=== PATIENT | female | born 1995 | race Caucasian/White ===

== ENCOUNTER 2020-05-07 01:01 | Emergency (ER) | payer SELFPAY ==
[2020-05-07] MEDS ORDERED: Sodium Chloride 0.9% 2.5 ML Syringe FLUSH PRN (01:38)
[2020-05-07] MEDS ORDERED: Sodium Chloride 0.9% 10 ML Syringe FLUSH PRN (01:38)
--- NOTE | 2020-05-07 01:42 | EDM.PDOC ---
ED HPI GENERAL MEDICAL PROBLEM - General Chief Complaint: Skin Complaint Stated Complaint: ABCESS ON BOTTOM Time Seen by Provider: 05/07/20 01:24 - History of Present Illness INITIAL COMMENTS - FREE TEXT/NARRATIVE: History of present illness: 25-year-old female presenting with left buttock abscess and rectal pain. Apparently started 2 days ago with pain in the rectum. Then she started to have pain migrating to the left buttock. She was concerned because she has previously had an abscess in that region that required I&D. She has not had any fevers or chills. No abdominal pain. No difficulty passing stool. Review of systems: As per history of present illness and below otherwise all systems reviewed and negative. Past medical history: As per history of present illness and as reviewed below otherwise noncontribut ory. Surgical history: As per history of present illness and as reviewed below otherwise noncontributory. Social history: No reported history of drug or alcohol abuse. Family history: As per history of present illness and as reviewed below otherwise noncontributory. Physical exam: GEN: no acute distress, well appearing HEENT: Atraumatic, normocephalic, mucous membranes moist, Neck: supple, nontender, trachea midline. Lungs: No respiratory distress. Heart: RRR Abdomen: Soft, nondistended, nontender. Rectal exam: External hemorrhoid, tender to palpation on rectal examination, no fullness palpated however there is induration and tenderness just lateral to the anus. No fluctuance at the site though is indurated and mildly swollen. Extremities: Atraumatic. Neurovascularly intact. Neuro: Awake, alert, oriented. Neuro Exam nonfocal. Skin: warm, dry, duration with mild erythema adjacent to the anus in the left buttock area. No perineal cellulitis. Diagnostics: [] Therapeutics: [] MDM: Impression: [] Plan: [] Definitive disposition and diagnosis as appropriate pending reevaluation and review of above. 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 History: Reports: None Neurological History: Reports: None Psychiatric History: Reports: None Endocrine/Metabolic History: Reports: None Hematologic History: Reports: None Immunologic History: Reports: None Oncologic (Cancer) History: Reports: None Dermatologic History: Reports: None - Infectious Disease History Infectious Disease History: Reports: None Social & Family History - Tobacco Use Smoking Status *Q: Current Every Day Smoker Years of Tobacco use: 8 Packs/Tins Daily: 0.5 - Recreational Drug Use Recreational Drug Use: No ED ROS GENERAL - Review of Systems Review Of Systems: See Below (See HPI) ED EXAM, SKIN/RASH Exam: See Below (See HPI) ED SKIN PROCEDURES - I&D Skin Prep: Providone-Iodine (Betadine), Saline Local Anesthesia: Lidocaine: 1% with EPI Local Anesthetic Volume: 2cc Area Incised With: 11 Blade Drainage: Bloody, Other (Patient unable to tolerate full I&D and declined additional pain medication) Course - Vital Signs Text/Narrative:: Concern for possible perirectal/perianal abscess or buttock abscess. CT scan ordered. Patient declined pain medications. CT scan shows perianal abscess, no perirectal abscess. Attempted I&D but patient unable to tolerate and therefore she request to be discharged with antibiotics and will also refer for surgery follow-up. Augmentin added into patient's pharmacy. Last Recorded V/S: Last Vital Signs Temp 96.5 F L 05/07/20 01:17 Pulse 94 05/07/20 04:59 Resp 14 05/07/20 04:59 BP 108/48 L 05/07/20 04:59 Pulse Ox 96 05/07/20 04:59 - Orders/Labs/Meds Orders: Active Orders 24 hr Category Date Time Status Sodium Chloride 0.9% [Saline Flush] Med 05/07/20 01:38 Active 10 ml FLUSH ASDIRECTED PRN Sodium Chloride 0.9% [Saline Flush] Med 05/07/20 01:38 Active 2.5 ml FLUSH ASDIRECTED PRN Saline Lock Insert [OM.PC] Stat Oth 05/07/20 01:38 Ordered Medication Orders Sodium Chloride (Saline Flush) 10 ml FLUSH ASDIRECTED PRN PRN Reason: Keep Vein Open Sodium Chloride (Saline Flush) 2.5 ml FLUSH ASDIRECTED PRN PRN Reason: Keep Vein Open Labs: Laboratory Tests 05/07/20 05/07/20 05/07/20 Range/Units 01:45 01:45 01:45 WBC 13.48 H (4.0-11.0) K/uL RBC 4.83 (4.30-5.90) M/uL Hgb 15.0 (12.0-16.0) g/dL Hct 44.2 (36.0-46.0) % MCV 91.5 (80.0-98.0) fL MCH 31.1 (27.0-32.0) pg MCHC 33.9 (31.0-37.0) g/dL RDW Std Deviation 42.9 (28.0-62.0) fl RDW Coeff of Eder 13 (11.0-15.0) % Plt Count 173 (150-400) K/uL MPV 11.10 (7.40-12.00) fL Neut % (Auto) 64.2 (48.0-80.0) % Lymph % (Auto) 23.7 (16.0-40.0) % [place] % (Auto) 10.0 (0.0-15.0) % Eos % (Auto) 1.9 (0.0-7.0) % Baso % (Auto) 0.2 (0.0-1.5) % Neut # (Auto) 8.7 H (1.4-5.7) K/uL Lymph # (Auto) 3.2 H (0.6-2.4) K/uL [place] # (Auto) 1.4 H (0.0-0.8) K/uL Eos # (Auto) 0.3 (0.0-0.7) K/uL Baso # (Auto) 0.0 (0.0-0.1) K/uL Nucleated RBC % 0.0 /100WBC Nucleated RBCs # 0 K/uL Sodium 142 (136-145) mmol/L Potassium 3.7 (3.5-5.1) mmol/L Chloride 103 (98-107) mmol/L Carbon Dioxide 29.2 (21.0-32.0) mmol/L BUN 19 H (7.0-18.0) mg/dL Creatinine 0.8 (0.6-1.0) mg/dL Est Cr Clr Drug Dosing 87.38 mL/min Estimated GFR (MDRD) > 60.0 ml/min Glucose 102 (74-106) mg/dL Calcium 9.1 (8.5-10.1) mg/dL HCG, Qual NEGATIVE (NEG) Meds: Medications Generic Name Dose Route Start Last Admin Trade Name Freq PRN Reason Stop Dose Admin Sodium Chloride 10 ml 05/07/20 01:38 Saline Flush FLUSH ASDIRECTED PRN Keep Vein Open Sodium Chloride 2.5 ml 05/07/20 01:38 Saline Flush FLUSH ASDIRECTED PRN Keep Vein Open Discontinued Medications Generic Name Dose Route Start Last Admin Trade Name Freq PRN Reason Stop Dose Admin Amoxicillin/Clavulanate Potassium 1 tab 05/07/20 02:45 05/07/20 04:11 Augmentin 875 Mg/125 Mg PO 05/07/20 02:46 1 tab ONETIME ONE Administration Iopamidol 100 ml 05/07/20 02:38 05/07/20 02:52 Isovue-370 (76%) IVPUSH 05/07/20 02:39 100 ml ONETIME ONE Administration Ketorolac Tromethamine 30 mg 05/07/20 04:17 05/07/20 04:23 Toradol IVPUSH 05/07/20 04:18 30 mg ONETIME ONE Administration Lidocaine/Epinephrine 10 ml 05/07/20 03:51 05/07/20 04:25 Xylocaine 1% With Epinephrine 1:100,000 INJECT 05/07/20 03:52 Not Given ONETIME ONE Lidocaine/Epinephrine Confirm 05/07/20 04:04 05/07/20 04:11 Xylocaine 1% With Epinephrine 1:100,000 Administered 05/07/20 04:05 20 ml Dose Administration 20 ml .ROUTE .STK-MED ONE - Re-Assessments/Exams Free Text/Narrative Re-Assessment/Exam: 05/07/20 04:[address] scan discussed with the patient, including perianal abscess and need for abscess I&D. The patient agrees with this plan. At first she had declined pain medication, however she does now agree to Toradol since she still needs to drive home. 05/07/20 05:29 Attempted I&D, despite pain medications and adequate local anesthesia, the patient was unable to tolerate I&D and declined any further attempts. I did offer her additional pain medications though she drove here, but she reports she is unable to get a ride home and she does not want to have any further intervention. She prefers to attempt the antibiotics and will continue to closely monitor her symptoms for the next 48 hours and return to the ER if symptoms are not significantly improved within 48 hours. Discussed plan to refer the patient to a surgeon as well as she has had 2 perianal abscesses in a short timeframe. She agrees with this plan. Departure - Departure Time of Disposition: 05:30 Disposition: Home, Self-Care 01 Clinical Impression: Perianal abscess - Discharge Information Prescriptions: Amoxicillin/Potassium Clav [Augmentin 875-125 Tablet] 1 each PO BID #20 tablet Instructions: Skin Abscess, [id number], Anorectal Abscess Referrals: PCP,None [Primary Care Provider] - Forms: ED Department Discharge Additional Instructions: The following information is given to patients seen in the emergency department who are being discharged to home. This information is to outline your options for follow-up care. We provide all patients seen in our emergency department with a follow-up referral. The need for follow-up, as well as the timing and circumstances, are variable depending upon the specifics of your emergency department visit. If you don't have a primary care physician on staff, we will provide you with a referral. We always advise you to contact your personal physician following an emergency department visit to inform them of the circumstance of the visit and for follow-up with them and/or the need for any referrals to a consulting specialist. The emergency department will also refer you to a specialist when appropriate. This referral assures that you have the opportunity for follow-up care with a specialist. All of these measure are taken in an effort to provide you with optimal care, which includes your follow-up. Under all circumstances we always encourage you to contact your private physician who remains a resource for coordinating your care. When calling for follow-up care, please make the office aware that this follow-up is from your recent emergency room visit. If for any reason you are refused follow-up, please contact the [facility] Emergency Department at and asked to speak to the emergency department charge nurse. [facility] - [facility] Professional Building [address] [place] [address], [address] [place] [address] Please follow-up with the surgery clinic as soon as possible for further evaluation of your abscess and possible definitive treatment. Sepsis Event Note (ED) - Evaluation Sepsis Screening Result: No Definite Risk - Focused Exam Vital Signs: Vital Signs Temp Pulse Resp BP Pulse Ox 05/07/20 04:59 94 14 108/48 L 96 05/07/20 02:36 94 16 106/61 96 05/07/20 01:17 96.5 F L 94 16 132/85 99 - My Orders Last 24 Hours: My Active Orders 05/07/20 01:38 Sodium Chloride 0.9% [Saline Flush] 10 ml FLUSH ASDIRECTED PRN Sodium Chloride 0.9% [Saline Flush] 2.5 ml FLUSH ASDIRECTED PRN Saline Lock Insert [OM.PC] Stat - Assessment/Plan Last 24 Hours: My Active Orders 05/07/20 01:38 Sodium Chloride 0.9% [Saline Flush] 10 ml FLUSH ASDIRECTED PRN Sodium Chloride 0.9% [Saline Flush] 2.5 ml FLUSH ASDIRECTED PRN Saline Lock Insert [OM.PC] Stat
[2020-05-07 02:17] LABS: BLOOD UREA NITROGEN,BUN 19 mg/dL (7.0-18.0); CARBON DIOXIDE,CO2 29.2 mmol/L (21.0-32.0); CHLORIDE,CL 103 mmol/L (98-107); GLUCOSE RANDOM 102 mg/dL (74-106); POTASSIUM,K 3.7 mmol/L (3.5-5.1); SODIUM,NA 142 mmol/L (136-145)
[2020-05-07] MEDS ORDERED: Iopamidol 755 Mg/ML 100 ML Bottle IVPUSH ONE (02:38)
[2020-05-07] MEDS ORDERED: Amoxicillin/Clavulanate K 875-125 MG Tab PO ONE (02:45)
--- NOTE | 2020-05-07 03:29 | CT ---
INDICATION: Perirectal abscess TECHNIQUE: Axial images were obtained from the diaphragm to the pubic symphysis. Reformats were obtained in the coronal and sagittal plane. IV Contrast: 100 cc Isovue 370 Oral Contrast: None COMPARISON: None. FINDINGS: Lower chest: Unremarkable. Liver: Unremarkable. Normal in size and attenuation. No masses. Gallbladder and bile ducts: Unremarkable. No stones or inflammation. No biliary dilatation. Spleen: Unremarkable. Normal in size without mass. Pancreas: Unremarkable. No mass or inflammation. Adrenal glands: Unremarkable. No nodules. Kidneys: Unremarkable. No masses, stones, or hydronephrosis. Vasculature: Unremarkable. GI tract: The stomach is unremarkable. No dilated loops of large or small intestine. Appendix unremarkable. Pelvis: Anteverted uterus. Bladder unremarkable. No adnexal mass. Within the left perianal tissues just distal to the anal sphincter there is a rim enhancing fluid collection with adjacent fat stranding measuring 12 x 9 x 8 millimeters (201, 137; 203, 64). Bones: Unremarkable for age. IMPRESSION: Left lateral perianal abscess distal to the anal sphincter measuring 12 x 9 x 8 millimeters. Please note that all CT scans at this facility use dose modulation, iterative reconstruction, and/or weight-based dosing when appropriate to reduce radiation dose to as low as reasonably achievable. Dictated by Fabio Payton MD @ May 07 2020 3:23AM Signed by Dr. Fabio Payton @ May 07 2020 3:27AM
[2020-05-07] MEDS ORDERED: Lidocaine 1% with EPINEPHrine 1:100,000 10 ML MDV INJECT ONE (03:51)
[2020-05-07] MEDS ORDERED: Lidocaine 1% with EPINEPHrine 1:100,000 20 ML MDV ONE (04:04)
[2020-05-07] MEDS ORDERED: Ketorolac 30 MG/ML SDV IVPUSH ONE (04:17)
== END 2020-05-07 05:45 | disposition home or self-care (01) ==
LOC: MW.ED 01:01
DX: K61.0 Anal abscess (principal); F17.210 Nicotine dependence, cigarettes, uncomplicated
CPT/HCPCS: 36415; 74177; 80048; 84703; 85025; 99283; A9270; J1885; Q9967

== ENCOUNTER 2021-06-20 19:03 | Emergency (ER) | payer SELFPAY ==
[2021-06-20] MEDS ORDERED: Sodium Chloride 0.9% 1,000 ML IV ONE (19:11)
--- NOTE | 2021-06-20 20:26 | EDM.PDOC ---
ED HPI GENERAL MEDICAL PROBLEM - General Chief Complaint: Headache Stated Complaint: DIZZINESS, HEAD PRESSURE, BLURRY VISION Time Seen by Provider: 06/20/21 19:08 Source of Information: Reports: Patient History Limitations: Reports: No Limitations - History of Present Illness INITIAL COMMENTS - FREE TEXT/NARRATIVE: HISTORY AND PHYSICAL: History of present illness: Patient is a 26-year-old female who presents to the emergency room with complaints of right ear pain, sinus pressure, and intermittent blurred vision of the right eye. Patient states she has had the symptoms for approximately 2 months. Symptoms initially started with headache on the right side which caused some intermittent blurred vision and light sensitivity. She allowed the symptoms to go on for approximately 1 month and then was seen by her primary care provider, Gabby mulligan. She was given a prescription for Doxycycline and steroid. She states the headaches have resolved. She occasionally has right ear pain into the mastoid region. Currently pain-free. Does not wear contact lenses or glasses. Patient denies any fever, chills, headache, change in vision, syncope or near syncope. Denies any chest pain, back pain, shortness of breath or cough. Denies any abdominal pain, nausea, vomiting, diarrhea, constipation or dysuria. Has not noted any blood in urine or stool. Patient has been eating and drinking appropriately. Review of systems: As per history of present illness and below otherwise all systems reviewed and negative. Past medical history: As per history of present illness and as reviewed below otherwise noncontributory. Surgical history: As per history of present illness and as reviewed below otherwise noncontributory. Social history: See social history for further information Family history: As per history of present illness and as reviewed below otherwise noncontributory. Physical exam: General: Well developed and well nourished 26-year-old female. Alert and orientated x 3. Nontoxic in appearance and in no acute distress. Vital signs are stable and have been reviewed by me. Nursing notes were reviewed. HEENT: Atraumatic, normocephalic, pupils equal and reactive bilaterally, negative for conjunctival pallor or scleral icterus, no pain with ocular movement, mucous membranes moist, TMs normal bilaterally, mild right mastoid tenderness to palpation, throat clear, neck supple, nontender, trachea midline. No drooling or trismus noted. No meningeal signs. No hot potato voice noted. Lungs: Clear to auscultation bilaterally. No wheezes, rales, or rhonchi. Chest nontender. Normal work of breathing, no accessory muscles used. Heart: S1S2, regular rate and rhythm without overt murmur, gallops, or rubs. No JVD. No peripheral edema Abdomen: Soft, nondistended, nontender. Normoactive bowel sounds. Negative for masses or costovertebral tenderness. Skin: Intact, warm, dry. No lesions or rashes noted. Hematologic: No petechiae or purpra. Mucosa appropriate color and normal nail bed color and refill. Extremities: Atraumatic, moves all extremities per self without difficulty or deficits, negative for cords or calf pain. Neurovascular unremarkable. Neuro: Awake, alert, oriented. Cranial nerves II through XII unremarkable. Cerebellum unremarkable. Motor and sensory unremarkable throughout. Exam nonfocal. Psychiatric: Mood and affect are appropriate. Normal thought process. Answering questions appropriately. Notes: *This patient was seen and evaluated during the 2019 SARS-CoV-2 novel coronavirus pandemic period. Community viral transmission is ongoing at time of this encounter and the emergency department is operating under pandemic response procedures. Patient is a 26-year-old female who presents to the emergency room with complaints of intermittent right ear pain, change in vision of the right eye and sinus pressure. She states symptoms have been going on for approximately 2 months. Previously she did have complaints of headache and light sensitivity, this has resolved since taking a course of antibiotic and steroid. Physical exam is unremarkable with the exception of mild tenderness to the mastoid region. Due to symptoms been going on for approximately 2 months without any labs or imaging I will perform those today. Patient states she is currently not having any pain, declines IV access and medication/fluid. Head CT shows no acute intracranial findings. Mucosal thickening in the left maxillary and left sphenoid sinuses. No air-fluid levels. The mastoid air cells are clear. Negative CT of the temporal bones. Lab work is unremarkable. I have talked with the patient about today's findings, in addition to providing specific details for plan of care. Reassessment at the time of disposition demonstrates that the patient is in no acute distress. The patient is stable for discharge, counseling was provided and we discussed in great detail signs and symptoms that would prompt them to return to the Emergency Department. Medication, follow up and supportive care measures were reviewed and discussed. Voices understanding and is agreeable to plan of care. Denies any further questions or concerns at this time. Diagnostics: CBC, CMP, CT head and ear bones Therapeutics: None Prescription: Augmentin Impression: Sinusitis Plan: 1. You were evaluated today on an emergent basis. Your lab work is within nor mal limits. The CT of your head and middle ear are unremarkable with the exception of left sided sinusitis. I would like you to do over the counter decongestant for your symptoms. It may be worse for you to follow-up with an fiscal specialist for further evaluation if this continues. 2. You can alternate Tylenol and ibuprofen as needed for pain and fever management. 3. We encourage you to follow up with your primary care provider and/or recommended specialist in the next few days for re-evaluation and further care/management. 4. If your symptoms should worsen, new symptoms develop or any of the signs and symptoms we discussed should arise please return to the emergency room or call 911 (if needed). Definitive disposition and diagnosis as appropriate pending reevaluation and review of above. - Related Data Allergies Allergy/AdvReac Type Severity Reaction Status Date / Time No Known Allergies Allergy Verified 06/20/21 19:20 Home Meds: Home Meds . 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: Musculoskeletal History: Reports: None Neurological History: Reports: None Psychiatric History: Reports: None Endocrine/Metabolic History: Reports: None Hematologic History: Reports: None Immunologic History: Reports: None Oncologic (Cancer) History: Reports: None Dermatologic History: Reports: None - Infectious Disease History Infectious Disease History: Reports: None Social & Family History - Tobacco Use Tobacco Use Status *Q: Never Tobacco User - Recreational Drug Use Recreational Drug Use: No ED ROS GENERAL - Review of Systems Review Of Systems: Comprehensive ROS is negative, except as noted in HPI. ED EXAM, GENERAL - Physical Exam Exam: See Below (See dictation) Course - Vital Signs Last Recorded V/S: Last Vital Signs Temp 97 F 06/20/21 19:17 Pulse 120 H 06/20/21 19:17 Resp 20 06/20/21 19:17 BP 146/81 H 06/20/21 19:17 Pulse Ox 98 06/20/21 19:17 - Orders/Labs/Meds Orders: Active Orders 24 hr Category Date Time Status Visual Acuity [Vision Test] [RC] ASDIRECTED Care 06/20/21 19:39 Active Labs: Laboratory Tests 06/20/21 06/20/21 06/20/21 Range/Units 19:46 19:46 20:05 WBC 9.99 (4.0-11.0) K/uL RBC 4.36 (4.30-5.90) M/uL Hgb 13.8 (12.0-16.0) g/dL Hct 38.9 (36.0-46.0) % MCV 89.2 (80.0-98.0) fL MCH 31.7 (27.0-32.0) pg MCHC 35.5 (31.0-37.0) g/dL RDW Std Deviation 42.4 (28.0-62.0) fl RDW Coeff of Eder 13 (11.0-15.0) % Plt Count 155 (150-400) K/uL MPV 10.70 (7.40-12.00) fL Neut % (Auto) 61.2 (48.0-80.0) % Lymph % (Auto) 29.9 (16.0-40.0) % [place] % (Auto) 6.7 (0.0-15.0) % Eos % (Auto) 1.9 (0.0-7.0) % Baso % (Auto) 0.3 (0.0-1.5) % Neut # (Auto) 6.1 H (1.4-5.7) K/uL Lymph # (Auto) 3.0 H (0.6-2.4) K/uL [place] # (Auto) 0.7 (0.0-0.8) K/uL Eos # (Auto) 0.2 (0.0-0.7) K/uL Baso # (Auto) 0.0 (0.0-0.1) K/uL Nucleated RBC % 0.0 /100WBC Nucleated RBCs # 0 K/uL Sodium 139 (136-145) mmol/L Potassium 3.6 (3.5-5.1) mmol/L Chloride 102 (98-107) mmol/L Carbon Dioxide 28.4 (21.0-32.0) mmol/L BUN 12 (7.0-18.0) mg/dL Creatinine 0.7 (0.6-1.0) mg/dL Est Cr Clr Drug Dosing 98.98 mL/min Estimated GFR (MDRD) > 60.0 ml/min Glucose 102 (74-106) mg/dL Calcium 8.3 L (8.5-10.1) mg/dL Total Bilirubin 0.2 (0.2-1.0) mg/dL AST 12 L (15-37) IU/L ALT 25 (14-63) IU/L Alkaline Phosphatase 51 (46-116) U/L Total Protein 6.8 (6.4-8.2) g/dL Albumin 3.7 (3.4-5.0) g/dL Globulin 3.1 (2.6-4.0) g/dL Albumin/Globulin Ratio 1.2 (0.9-1.6) Urine Color YELLOW Urine Appearance CLEAR Urine pH 6.0 (5.0-8.0) Ur Specific [place] 1.015 (1.001-1.035) Urine Protein NEGATIVE (NEGATIVE) mg/dL Urine Glucose (UA) NEGATIVE (NEGATIVE) mg/dL Urine Ketones NEGATIVE (NEGATIVE) mg/dL Urine Occult Blood NEGATIVE (NEGATIVE) Urine Nitrite NEGATIVE (NEGATIVE) Urine Bilirubin NEGATIVE (NEGATIVE) Urine Urobilinogen 0.2 (<2.0) EU/dL Ur Leukocyte Esterase NEGATIVE (NEGATIVE) Urine HCG, Qual (NEGATIVE) 06/20/21 Range/Units 20:05 WBC (4.0-11.0) K/uL RBC (4.30-5.90) M/uL Hgb (12.0-16.0) g/dL Hct (36.0-46.0) % MCV (80.0-98.0) fL MCH (27.0-32.0) pg MCHC (31.0-37.0) g/dL RDW Std Deviation (28.0-62.0) fl RDW Coeff of Eder (11.0-15.0) % Plt Count (150-400) K/uL MPV (7.40-12.00) fL Neut % (Auto) (48.0-80.0) % Lymph % (Auto) (16.0-40.0) % [place] % (Auto) (0.0-15.0) % Eos % (Auto) (0.0-7.0) % Baso % (Auto) (0.0-1.5) % Neut # (Auto) (1.4-5.7) K/uL Lymph # (Auto) (0.6-2.4) K/uL [place] # (Auto) (0.0-0.8) K/uL Eos # (Auto) (0.0-0.7) K/uL Baso # (Auto) (0.0-0.1) K/uL Nucleated RBC % /100WBC Nucleated RBCs # K/uL Sodium (136-145) mmol/L Potassium (3.5-5.1) mmol/L Chloride (98-107) mmol/L Carbon Dioxide (21.0-32.0) mmol/L BUN (7.0-18.0) mg/dL Creatinine (0.6-1.0) mg/dL Est Cr Clr Drug Dosing mL/min Estimated GFR (MDRD) ml/min Glucose (74-106) mg/dL Calcium (8.5-10.1) mg/dL Total Bilirubin (0.2-1.0) mg/dL AST (15-37) IU/L ALT (14-63) IU/L Alkaline Phosphatase (46-116) U/L Total Protein (6.4-8.2) g/dL Albumin (3.4-5.0) g/dL Globulin (2.6-4.0) g/dL Albumin/Globulin Ratio (0.9-1.6) Urine Color Urine Appearance Urine pH (5.0-8.0) Ur Specific [place] (1.001-1.035) Urine Protein (NEGATIVE) mg/dL Urine Glucose (UA) (NEGATIVE) mg/dL Urine Ketones (NEGATIVE) mg/dL Urine Occult Blood (NEGATIVE) Urine Nitrite (NEGATIVE) Urine Bilirubin (NEGATIVE) Urine Urobilinogen (<2.0) EU/dL Ur Leukocyte Esterase (NEGATIVE) Urine HCG, Qual NEGATIVE (NEGATIVE) Meds: Medications Discontinued Medications Generic Name Dose Route Start Last Admin Trade Name Freq PRN Reason Stop Dose Admin Sodium Chloride 1,000 mls @ 999 mls/hr 06/20/21 19:11 06/20/21 20:49 Normal Saline IV 06/20/21 20:11 Not Given STAT ONE Departure - Departure Time of Disposition: 21:42 Disposition: Home, Self-Care 01 Clinical Impression: Sinusitis Qualifiers: Sinusitis location: sphenoidal Chronicity: acute Recurrence: non-recurrent Qualified Code(s): J01.30 - Acute sphenoidal sinusitis, unspecified - Discharge Information Instructions: Sinusitis, Adult, [id number] Referrals: Gabby Soto PA [Primary Care Provider] - Forms: ED Department Discharge Additional Instructions: The following information is given to patients seen in the emergency department who are being discharged to home. This information is to outline your options for follow-up care. We provide all patients seen in our emergency department with a follow-up referral. The need for follow-up, as well as the timing and circumstances, are variable depending upon the specifics of your emergency department visit. If you don't have a primary care physician on staff, we will provide you with a referral. We always advise you to contact your personal physician following an emergency department visit to inform them of the circumstance of the visit and for follow-up with them and/or the need for any referrals to a consulting specialist. The emergency department will also refer you to a specialist when appropriate. This referral assures that you have the opportunity for follow-up care with a specialist. All of these measure are taken in an effort to provide you with optimal care, which includes your follow-up. Under all circumstances we always encourage you to contact your private physician who remains a resource for coordinating your care. When calling for follow-up care, please make the office aware that this follow-up is from your recent emergency room visit. If for any reason you are refused follow-up, please contact the [facility] Emergency Department at and asked to speak to the emergency department charge nurse. [facility] [address] [place] [id number] [id number] Thank you for choosing the [facility] emergency department in [place] for your medical needs today. It was a pleasure caring for you. Today you were seen in the emergency department for sinusitis. 1. You were evaluated today on an emergent basis. Your lab work is within normal limits. The CT of your head and middle ear are unremarkable with the exception of left sided sinusitis. I would like you to do over the counter decongestant for your symptoms. It may be worse for you to follow-up with an fiscal specialist for further evaluation if this continues. 2. You can alternate Tylenol and ibuprofen as needed for pain and fever management. 3. We encourage you to follow up with your primary care provider and/or recommended specialist in the next few days for re-evaluation and further care/management. 4. If your symptoms should worsen, new symptoms develop or any of the signs and symptoms we discussed should arise please return to the emergency room or call 911 (if needed). Sepsis Event Note (ED) - Evaluation Sepsis Screening Result: No Definite Risk - Focused Exam Vital Signs: Vital Signs Temp Pulse Resp BP Pulse Ox 06/20/21 19:17 97 F 120 H 20 146/81 H 98 - My Orders Last 24 Hours: My Active Orders 06/20/21 19:39 Visual Acuity [Vision Test] [RC] ASDIRECTED - Assessment/Plan Last 24 Hours: My Active Orders 06/20/21 19:39 Visual Acuity [Vision Test] [RC] ASDIRECTED
[2021-06-20 20:27] LABS: BLOOD UREA NITROGEN,BUN 12 mg/dL (7.0-18.0); CARBON DIOXIDE,CO2 28.4 mmol/L (21.0-32.0); CHLORIDE,CL 102 mmol/L (98-107); GLUCOSE RANDOM 102 mg/dL (74-106); POTASSIUM,K 3.6 mmol/L (3.5-5.1); SODIUM,NA 139 mmol/L (136-145)
--- NOTE | 2021-06-20 21:37 | CT ---
INDICATION: Headache, dizziness, right ear pain. COMPARISON: None. TECHNIQUE: CT of the head without IV contrast. Coronal and sagittal reconstructions are provided. FINDINGS: No intracranial hemorrhage, mass effect, or evidence of acute infarct. No midline shift. No abnormal extra-axial fluid collections. Normal caliber ventricular system. Orbits and extraocular muscles are symmetric. Mucosal thickening in the left maxillary and left sphenoid sinuses. No air-fluid levels. The paranasal sinuses and mastoid air cells are otherwise clear. No acute fracture. Soft tissues are unremarkable. IMPRESSION: : 1. No acute intracranial findings. 2. Mucosal thickening in the left maxillary and left sphenoid sinuses. No air-fluid levels. The mastoid air cells are clear. Please note that all CT scans at this facility use dose modulation, iterative reconstruction, and/or weight-based dosing when appropriate to reduce radiation dose to as low as reasonably achievable. Dictated by Liana Duran MD @ 06/20/2021 9:34:[address] Liana Duran @ Jun 20 2021 9:34PM
--- NOTE | 2021-06-20 21:39 | CT ---
Indication : Right ear pain. Headache. Dizziness. Evaluate for mastoiditis. Technique : Performed without IV contrast. Comparison : None available. Findings : The middle ear clefts are well aerated, including the oval window and round window/sinus tympani areas. The ossicular chains and tympanic membranes have a normal CT appearance. The mastoids are well developed and clear, including the central tracts and peripheral air cells. The inner ear structures and IACs are unremarkable. The external canals are negative. No abnormalities identified in the adjacent temporomandibular joints. The visualized portions of the brain, orbits and upper soft tissue neck are grossly negative. Impression : Negative CT of the temporal bones. Please note that all CT scans at this facility use dose modulation, iterative reconstruction, and/or weight-based dosing when appropriate to reduce radiation dose to as low as reasonably achievable. Dictated by Héctor May MD @ 06/20/2021 9:37:[address] Héctor May @ Jun 20 2021 9:37PM
== END 2021-06-20 21:53 | disposition home or self-care (01) ==
LOC: MW.ED 19:03
DX: J01.30 Acute sphenoidal sinusitis, unspecified (principal)
CPT/HCPCS: 36415; 70450; 70450-26; 70480; 70480-26; 80053; 81003; 81025; 85025; 99284-25

== ENCOUNTER 2021-07-06 15:56 | Emergency (ER) | payer MEDICAID ==
--- NOTE | 2021-07-06 16:05 | EDM.PDOC ---
<Keith Dumont - Last Filed: 07/07/21 03:23> ED HPI GENERAL MEDICAL PROBLEM - General Chief Complaint: ENT Problem Stated Complaint: [facility] Time Seen by Provider: 07/06/21 15:59 - Related Data Allergies Allergy/AdvReac Type Severity Reaction Status Date / Time No Known Allergies Allergy Verified 07/06/21 16:15 Home Meds: Home Meds acetaZOLAMIDE [Diamox Sequels] 500 mg PO BID 30 Days #60 cap.er 07/06/21 [Rx] ED NEURO PROCEDURES - Lumbar Puncture Indication: Other (Visual disturbance) Consent Obtained: Patient Position: Left Prep: Betadine Local Anesthesia - Lidocaine (Xylocaine): 1% Plain Local Anesthetic Volume: 5cc Vertebral Interspace: L4/L5 Spinal Needle With Stylet: 22ga, 3.5 Inch (Adult) Number of Attempts: 1 Fluid Appearance: Clear Opening Pressure: 37 Tubes Obtained: 4 Total Fluid Amount: 4cc Complications: No (This patient had an uneventful lumbar puncture. The opening pressure was 37. I took out enough to have the closing pressure at 16.) Course - Vital Signs Text/Narrative:: 1900 hrs. at change of shift I picked up this patient from Dr. Cook. Dr. Shelton phone [phone] if the MRI is negative do an LP for opening pressure and if everything is negative start on Solu-Medrol 1 g and started on steroids. The patient is resting comfortably. She understands the risks and benefits of a spinal tap. She agrees to that. She is also tolerated steroids in the past because 2 weeks ago she was started on steroids for sinusitis and those have now been terminated. Just reviewing the history which was originally taken by Dr. Cook. The patient had sinus infection 2 days before 15 May. She has been on steroids and antibiotics prednisone and doxycycline. During that time the patient had visual change in the right eye. When she looks of the lines on the road they are weaving and not straight. When she looks to the left eye they are straight. She is never had any pain but feels a pressure in her right eye. The patient's vision has not changed in the month. She saw the billing spec today and the billing spec said she had abnormal vessels in the retina. The parking analyst dilated her pupils and agreed with the billing spec. They sent her for MRI. At the time of this dictation at 1923 hrs. 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 The patient has no acute injury and no explanation for visual disturbance on the MRI. The parking analyst wants opening pressure and treatment for pseudotumor cerebri if that is indicated however otherwise she wants to put the patient back on steroids starting with 1 g of Solu-Medrol tonight. [address] Kulkarni on-call for Dr. Shelton and he agreed that they would follow the patient closely. They will be in touch tomorrow and she should see the on Sunday Departure - Departure Disposition: Home, Self-Care 01 Condition: Good Clinical Impression: Idiopathic intracranial hypertension, Visual disturbance - Discharge Information Prescriptions: acetaZOLAMIDE [Diamox Sequels] 500 mg PO BID 30 Days #60 cap.er Instructions: Pseudotumor Cerebri Referrals: Gabby Soto PA [Primary Care Provider] - Pratik Shelton MD [Ordering Only Provider] - Forms: ED Department Discharge Additional Instructions: Start the medicine and follow-up with ophthalmology and neurology. If you cannot get in touch with ophthalmology and neurology tomorrow and you need to contact your primary doctor because your follow-up needs to start tomorrow. He cannot wait. Dr. Shelton's partner wants you to see her Sunday. Keep in touch with the office and if you have any worsening of symptoms then you should be seen sooner. [facility] - Neurology [address], [address] [place] [address] The following information is given to patients seen in the emergency department who are being discharged to home. This information is to outline your options for follow-up care. We provide all patients seen in our emergency department with a follow-up referral. The need for follow-up, as well as the timing and circumstances, are variable depending upon the specifics of your emergency department visit. If you don't have a primary care physician on staff, we will provide you with a referral. We always advise you to contact your personal physician following an emergency department visit to inform them of the circumstance of the visit and for follow-up with them and/or the need for any referrals to a consulting specialist. The emergency department will also refer you to a specialist when appropriate. This referral assures that you have the opportunity for follow-up care with a specialist. All of these measure are taken in an effort to provide you with optimal care, which includes your follow-up. Under all circumstances we always encourage you to contact your private physician who remains a resource for coordinating your care. When calling for follow-up care, please make the office aware that this follow-up is from your recent emergency room visit. If for any reason you are refused follow-up, please contact the [facility] Emergency Department at and asked to speak to the emergency department charge nurse. <Jorge Cook - Last Filed: 07/07/21 07:19> ED HPI GENERAL MEDICAL PROBLEM - General Source of Information: Reports: Patient History Limitations: Reports: No Limitations - History of Present Illness INITIAL COMMENTS - FREE TEXT/NARRATIVE: Patient is a 26-year-old female who was sent over from ophthalmology clinic for evaluation of vision changes. Patient denies any change for the past few days and she went to the billing spec who thought she had a dilated optic nerve and sent her to the parking analyst who became concerned for various other causes. She wanted the patient be sent here for MRI and MRV and possible lumbar puncture. Patient herself currently states that she had a pupils dilated at the clinic and is difficult to see base of the reports that she has some change in vision most in the right eye. There was some concerns about possible cat scratch disease she lives with a cat but she can flex pressure but maybe looks her when she sleeping. Patient otherwise denies any other medical complaints. Based upon conversation with Dr. Shelton ophthalmology she would like MRI MRV LP and various labs if those are negative he would want to be started on 1 g of Solu-Medrol. Past Medical History HEENT History: Reports: None Cardiovascular History: Reports: None Respiratory History: Reports: None Gastrointestinal History: Reports: None Genitourinary History: Reports: None POWER PLANT ASSISTANT History: Reports: Other POWER PLANT ASSISTANT History: Musculoskeletal History: Reports: None Neurological History: Reports: None Psychiatric History: Reports: None Endocrine/Metabolic History: Reports: None Hematologic History: Reports: None Immunologic History: Reports: None Oncologic (Cancer) History: Reports: None Dermatologic History: Reports: None - Infectious Disease History Infectious Disease History: Reports: None ED ROS GENERAL - Review of Systems Review Of Systems: See Below Constitutional: Reports: No Symptoms HEENT: Reports: Vision Change Respiratory: Reports: No Symptoms Cardiovascular: Reports: No Symptoms Endocrine: Reports: No Symptoms GI/Abdominal: Reports: No Symptoms : Reports: No Symptoms Musculoskeletal: Reports: No Symptoms Skin: Reports: No Symptoms Neurological: Reports: No Symptoms Psychiatric: Reports: No Symptoms Hematologic/Lymphatic: Reports: No Symptoms Immunologic: Reports: No Symptoms ED EXAM, NEURO - Physical Exam Exam: See Below Exam Limited By: No Limitations General Appearance: Alert, WD/WN, No Apparent Distress Eye Exam: Bilateral Eye: Abnormal Pupil (Likely due to be dilated at the parking analyst), EOMI Head Exam: Atraumatic, Normocephalic Respiratory/Chest: No Respiratory Distress, Lungs Clear, Normal Breath Sounds Cardiovascular: Normal Peripheral Pulses, Regular Rate, Rhythm GI/Abdominal: Normal Bowel Sounds, Soft, Non-Tender Neurological: Alert, Normal Mood/Affect, Oriented x 3 Extremities: Normal Inspection Course - Vital Signs Last Recorded V/S: Last Vital Signs Temp 96.6 F L 07/06/21 16:16 Pulse 78 07/06/21 22:21 Resp 20 07/06/21 22:21 BP 120/56 L 07/06/21 22:21 Pulse Ox 95 07/06/21 22:21 - Orders/Labs/Meds Orders: Active Orders 24 hr Category Date Time Status ANTI-CENTROMERE B ABS [REF] Stat Lab 07/06/21 18:30 Received CSF CULTURE [MREF] Stat Lab 07/06/21 20:50 Received RPR (SYPHILIS SERO) W/ RFLX [REF] Stat Lab 07/06/21 18:30 Received VARICELLA ZOSTER ABS, IGG/IGM [REF] Stat Lab 07/06/21 18:30 Received Labs: Laboratory Tests 07/06/21 07/06/21 07/06/21 Range/Units 16:25 16:25 20:50 WBC 10.43 (4.0-11.0) K/uL RBC 4.99 (4.30-5.90) M/uL Hgb 15.5 (12.0-16.0) g/dL Hct 44.5 (36.0-46.0) % MCV 89.2 (80.0-98.0) fL MCH 31.1 (27.0-32.0) pg MCHC 34.8 (31.0-37.0) g/dL RDW Std Deviation 41.0 (28.0-62.0) fl RDW Coeff of Eder 13 (11.0-15.0) % Plt Count 195 (150-400) K/uL MPV 11.40 (7.40-12.00) fL Neut % (Auto) 62.3 (48.0-80.0) % Lymph % (Auto) 30.3 (16.0-40.0) % [place] % (Auto) 6.3 (0.0-15.0) % Eos % (Auto) 0.7 (0.0-7.0) % Baso % (Auto) 0.4 (0.0-1.5) % Neut # (Auto) 6.5 H (1.4-5.7) K/uL Lymph # (Auto) 3.2 H (0.6-2.4) K/uL [place] # (Auto) 0.7 (0.0-0.8) K/uL Eos # (Auto) 0.1 (0.0-0.7) K/uL Baso # (Auto) 0.0 (0.0-0.1) K/uL Nucleated RBC % 0.0 /100WBC Nucleated RBCs # 0 K/uL Sodium 141 (136-145) mmol/L Potassium 3.7 (3.5-5.1) mmol/L Chloride 102 (98-107) mmol/L Carbon Dioxide 28.4 (21.0-32.0) mmol/L BUN 10 (7.0-18.0) mg/dL Creatinine 0.7 (0.6-1.0) mg/dL Est Cr Clr Drug Dosing 98.98 mL/min Estimated GFR (MDRD) > 60.0 ml/min Glucose 97 (74-106) mg/dL Calcium 9.2 (8.5-10.1) mg/dL Total Bilirubin 0.5 (0.2-1.0) mg/dL AST 15 (15-37) IU/L ALT 25 (14-63) IU/L Alkaline Phosphatase 67 (46-116) U/L Total Protein 7.9 (6.4-8.2) g/dL Albumin 4.5 (3.4-5.0) g/dL Globulin 3.4 (2.6-4.0) g/dL Albumin/Globulin Ratio 1.3 (0.9-1.6) CSF Appearance CLEAR CSF Color COLORLESS CSF WBC 0 (0-5) /uL CSF RBC 12 H (0-0) /uL CSF Mononuclear Cells 0.0 % CSF Polymorphonuclear 0.0 % CSF Glucose (40-70) mg/dL CSF Total Protein (15-45) mg/dL 07/06/21 Range/Units 20:50 WBC (4.0-11.0) K/uL RBC (4.30-5.90) M/uL Hgb (12.0-16.0) g/dL Hct (36.0-46.0) % MCV (80.0-98.0) fL MCH (27.0-32.0) pg MCHC (31.0-37.0) g/dL RDW Std Deviation (28.0-62.0) fl RDW Coeff of Eder (11.0-15.0) % Plt Count (150-400) K/uL MPV (7.40-12.00) fL Neut % (Auto) (48.0-80.0) % Lymph % (Auto) (16.0-40.0) % [place] % (Auto) (0.0-15.0) % Eos % (Auto) (0.0-7.0) % Baso % (Auto) (0.0-1.5) % Neut # (Auto) (1.4-5.7) K/uL Lymph # (Auto) (0.6-2.4) K/uL [place] # (Auto) (0.0-0.8) K/uL Eos # (Auto) (0.0-0.7) K/uL Baso # (Auto) (0.0-0.1) K/uL Nucleated RBC % /100WBC Nucleated RBCs # K/uL Sodium (136-145) mmol/L Potassium (3.5-5.1) mmol/L Chloride (98-107) mmol/L Carbon Dioxide (21.0-32.0) mmol/L BUN (7.0-18.0) mg/dL Creatinine (0.6-1.0) mg/dL Est Cr Clr Drug Dosing mL/min Estimated GFR (MDRD) ml/min Glucose (74-106) mg/dL Calcium (8.5-10.1) mg/dL Total Bilirubin (0.2-1.0) mg/dL AST (15-37) IU/L ALT (14-63) IU/L Alkaline Phosphatase (46-116) U/L Total Protein (6.4-8.2) g/dL Albumin (3.4-5.0) g/dL Globulin (2.6-4.0) g/dL Albumin/Globulin Ratio (0.9-1.6) CSF Appearance CSF Color CSF WBC (0-5) /uL CSF RBC (0-0) /uL CSF Mononuclear Cells % CSF Polymorphonuclear % CSF Glucose 57.0 (40-70) mg/dL CSF Total Protein 25 (15-45) mg/dL Meds: Medications Discontinued Medications Generic Name Dose Route Start Last Admin Trade Name Freq PRN Reason Stop Dose Admin Acetazolamide 500 mg 07/06/21 21:49 07/06/21 22:34 Acetazolamide 250 Mg Tab PO 07/06/21 21:50 500 mg ONETIME ONE Administration Acetazolamide Confirm 07/06/21 22:43 07/07/21 02:05 Acetazolamide 250 Mg Tab Administered 07/06/21 22:44 Not Given Dose 250 mg .ROUTE .STK-MED ONE Gadobenate Dimeglumine 20 ml 07/06/21 17:20 07/06/21 17:21 Gadobenate Dimeglumine 529 Mg/Ml 20 Ml Sdv IVPUSH 07/06/21 17:21 14 ml ONETIME STA Administration Departure - Departure Time of Disposition: 22:28 Sepsis Event Note (ED) - Focused Exam Vital Signs: Vital Signs Pulse Resp BP Pulse Ox 07/06/21 22:21 78 20 120/56 L 95 - My Orders Last 24 Hours: My Active Orders 07/06/21 18:30 ANTI-CENTROMERE B ABS [REF] Stat RPR (SYPHILIS SERO) W/ RFLX [REF] Stat VARICELLA ZOSTER ABS, IGG/IGM [REF] Stat - Assessment/Plan Last 24 Hours: My Active Orders 07/06/21 18:30 ANTI-CENTROMERE B ABS [REF] Stat RPR (SYPHILIS SERO) W/ RFLX [REF] Stat VARICELLA ZOSTER ABS, IGG/IGM [REF] Stat Plan: Patient is a 26-year-old female presents today for vision change for the past few days. Patient was sent over by parking analyst to have further work-up such as MRIs and possible LP. Will obtain basic labs or MRIs and if negative patient will be LP by my colleague and patient will be spoken to by my colleague once results are back. Patient be signed out.
[2021-07-06 17:05] LABS: BLOOD UREA NITROGEN,BUN 10 mg/dL (7.0-18.0); CARBON DIOXIDE,CO2 28.4 mmol/L (21.0-32.0); CHLORIDE,CL 102 mmol/L (98-107); GLUCOSE RANDOM 97 mg/dL (74-106); POTASSIUM,K 3.7 mmol/L (3.5-5.1); SODIUM,NA 141 mmol/L (136-145)
[2021-07-06] MEDS ORDERED: Gadobenate Dimeglumine 529 MG/ML 20 ML SDV IVPUSH STA (17:20)
--- NOTE | 2021-07-06 18:20 | MR ---
HISTORY: Visual changes. Evaluate for mass or aneurysm. COMPARISON: CT of the head from 06/20/2021 TECHNIQUE: MR venography is performed without contrast enhancement using a standard protocol. FINDINGS: There is no sign of deep venous thrombosis involving the superior sagittal sinus or deep venous drainage of the brain. There is a dominant right transverse sinus resulting in a dominant right sigmoid sinus and internal jugular vein. These are widely patent. 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 There is no sign of high T1 signal thrombus in the left transverse sinus, with nothing to suggest that the left transverse sinus is occluded. With the hypoplastic left transverse sinus, there is a small caliber left sigmoid sinus and left internal jugular vein. These are seen to be widely patent. The internal carotid arteries are seen to be patent bilaterally on the MRV images. Similarly, the vertebral arteries are seen to be widely patent bilaterally, as is the basilar artery. The brain parenchyma is normal in appearance for the patient`s age on the 2-D [id number] images. IMPRESSION: No sign of venous thrombosis in the brain. 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 I do not believe that the left transverse sinus is thrombosed. Dictated by Garry Donahue MD @ 07/06/2021 6:19:[address] Garry Donahue @ Jul 06 2021 6:19PM
--- NOTE | 2021-07-06 19:23 | MR ---
HISTORY: Visual change. Evaluate for mass or aneurysm COMPARISON: MRV of the brain from today. TECHNIQUE: MR examination of the brain and orbits was performed before and after contrast enhancement using a standard protocol. Contrast enhancement was performed with the uneventful intravenous administration of 14 cc of MultiHance. FINDINGS: The brain is normal in appearance for the patient`s age on today`s study with no sign of mass effect, mass lesion, hemorrhage or edema. The ventricles and sulci are normal in appearance for the patient`s age. There is no sign of diffusion abnormality to suggest an acute infarct. No pathologic enhancement is seen in the brain. The pituitary gland is normal in appearance. Examination of the orbits is unremarkable. There is no sign of any abnormal T2 signal or enhancement of the optic nerves, optic chiasm, or optic tracts to suggest demyelination. The globes, extraocular muscles, lacrimal glands, and superior ophthalmic veins are unremarkable. There is a moderate mucous retention cyst unchanged in appearance in the posterior left sphenoid sinus. Again seen is a mucous retention cyst in the posterior left maxillary sinus. The rest of the visualized paranasal sinuses and mastoids are clear. IMPRESSION: Normal MR examination of the brain with and without contrast for the patient`s age. Normal MR examination of the visual apparatus, with nothing seen to explain the patient`s change in vision. Dictated by Garry Donahue MD @ 07/06/2021 7:23:[address] Garry Donahue @ Jul 06 2021 7:23PM
[2021-07-06] MEDS ORDERED: acetaZOLAMIDE 250 MG Tab PO ONE (21:49)
[2021-07-06] MEDS ORDERED: acetaZOLAMIDE 250 MG Tab ONE (22:43)
== END 2021-07-06 22:45 | disposition home or self-care (01) ==
LOC: MW.ED 15:56
DX: H53.9 Unspecified visual disturbance (principal); I10 Essential (primary) hypertension
CPT/HCPCS: 36415; 62270; 70544; 70553; 80053; 82945; 83516; 84157; 85025; 86592; 86787; 87070; 87205; 89050; 99284; A9270; A9577

== ENCOUNTER 2021-12-11 13:26 | Emergency (ER) | payer MEDICAID | END 2021-12-11 15:31 | disposition home or self-care (01) | LOC: MW.ED 13:26 | DX: J11.1 Influenza due to unidentified influenza virus with other respiratory manifestations (principal) | CPT/HCPCS: 99283 ==